=== PATIENT | female | born 1975 | race American Indian/Alaskan Native ===

== ENCOUNTER 2022-04-21 13:19 | Emergency (ER) | payer MEDICARE, OTHER ==
[~2022-04-21] VITALS: Ht 170.2 cm; Wt 75.6 kg
[2022-04-21] MEDS ORDERED: LEVOTHYROXINE75 MC1 PO (14:03)
[2022-04-21] MEDS ORDERED: LIPITOR40 MG PO (14:04)
[2022-04-21] MEDS ORDERED: NEURONTIN300 MG PO (14:04)
[2022-04-21] MEDS ORDERED: AMLODIPINE BESY10 MG PO (14:05)
[2022-04-21] MEDS ORDERED: LISINOPRIL10 MG PO (14:05)
[2022-04-21] MEDS ORDERED: CALCIUM ACETAT667 M1 NG (14:05)
[2022-04-21] MEDS ORDERED: AMITRIPTYLINE H50 MG PO (14:05)
[2022-04-21] MEDS ORDERED: PANTOPRAZOLE SO20 MG PO (14:06)
[2022-04-21] MEDS ORDERED: METOPROLOL TART50 MG PO (14:06)
[2022-04-21] MEDS ORDERED: LANTUS100 UNITS/ SUB-Q (14:06)
--- NOTE | 2022-04-23 17:29 | EKG ---
[facility] [address] [place] [address] Signed Normal sinus rhythm Acute pericarditis Abnormal ECG No previous ECGs available Confirmed by LENI BOYD MD ([id number] on 04/23/2022 5:29:24 PM Electronically Signed By: LENI BOYD MD 04/23/22 1729 PATIENT NAME: MARY GUZMAN Electrocardiogram DATE OF : 75 PHYSICIAN: LENI BOYD MD REPORT #: [id number] REPORT IS CONFIDENTIAL AND NOT TO BE RELEASED WITHOUT AUTHORIZATION
== END 2022-04-22 02:13 | disposition short-term general hospital (02) ==
LOC: ED 13:19
DX: I13.0 Hypertensive heart and chronic kidney disease with heart failure and stage 1 through stage 4 chronic kidney disease, or unspecified chronic kidney disease (principal); E11.22 Type 2 diabetes mellitus with diabetic chronic kidney disease; N18.9 Chronic kidney disease, unspecified; I31.9 Disease of pericardium, unspecified; Z20.822 Contact with and (suspected) exposure to COVID-19; Z99.2 Dependence on renal dialysis; Z88.1 Allergy status to other antibiotic agents; Z88.8 Allergy status to other drugs, medicaments and biological substances; Z88.5 Allergy status to narcotic agent; Z88.6 Allergy status to analgesic agent; Z79.899 Other long term (current) drug therapy; Z79.4 Long term (current) use of insulin
CPT/HCPCS: 36415; 71045; 80053; 83735; 83880; 84484; 85025; 87502; 93005; 93010; 96374; 96375; 96376; 99285-25; C9803; J1170; J1815; J2405; U0003